=== PATIENT | male | born 1970 | race Hispanic/Latino ===

== ENCOUNTER 2022-04-03 10:36 | Emergency (ER) | payer SELFPAY ==
[2022-04-03 11:08] VITALS: BP 141/91
[2022-04-03 11:15] VITALS: BP 122/80
[2022-04-03 11:30] VITALS: BP 110/79
[2022-04-03 11:45] VITALS: BP 130/82
[2022-04-03 12:00] VITALS: BP 119/80
[2022-04-03] MEDS ORDERED: NAPROXEN500 MG PO (12:28)
[2022-04-03] MEDS ORDERED: BACTRIM DS1 TAB PO (12:28)
[2022-04-03 12:38] VITALS: BP 119/80
== END 2022-04-03 12:38 | disposition home or self-care (01) | DRG 607 ==
LOC: ED 10:36
DX: L72.9 Follicular cyst of the skin and subcutaneous tissue, unspecified (principal); S20.461A Insect bite (nonvenomous) of right back wall of thorax, initial encounter; W57.XXXA Bitten or stung by nonvenomous insect and other nonvenomous arthropods, initial encounter; I10 Essential (primary) hypertension; E11.9 Type 2 diabetes mellitus without complications; Z79.84 Long term (current) use of oral hypoglycemic drugs; E78.00 Pure hypercholesterolemia, unspecified